=== PATIENT | female | born 1980 | race Caucasian/White ===

== ENCOUNTER → 2018-08-19 | Outpatient (CLI) | payer OTHER ==
[2018-08-21 14:08] LABS: HPV 16 Negative (Negative); HPV 18 Negative (Negative); HPV OTHER HR TYPES Negative (Negative)
== END ==
LOC: LAB 11:05 → LAB SHORT 11:05
PROVIDERS: Nurse Practitioner Obstetrics & Gynecology
DX: Z01.419 Encounter for gynecological examination (general) (routine) without abnormal findings (principal)
CPT/HCPCS: 87624; G0123

== ENCOUNTER → 2019-08-16 | Outpatient (CLI) | payer OTHER ==
[~2019-08-16] MED LIST: Lialda1.2 GM PO; MULTI VITAMIN1 EACH PO; Mesalamine4 GM/60 ML PR
[2019-08-16 14:30] LABS: Source, Urine Clean Catch
[2019-08-16 16:42] LABS: Red Blood Cells, Urine 0-2 /hpf (0-2); White Blood Cells, Urine 0-2 /hpf (0-5)
[2019-08-16 16:43] LABS: Bacteria Rare /hpf; Squamous Epithelial Cells Not Seen /hpf (Few)
[2019-08-19 02:10] LABS: CHLAMYDIA TRACHOMATIS, NAA Negative (Negative); NEISSERIA GONORRHOEAE, NAA Negative (Negative)
[2019-08-20 15:09] LABS: HPV 16 Negative (Negative); HPV 18 Negative (Negative)
== END ==
LOC: LAB SHORT 11:20 → LAB 11:20
PROVIDERS: Advanced Practice Midwife
DX: Z01.419 Encounter for gynecological examination (general) (routine) without abnormal findings (principal); Z11.3 Encounter for screening for infections with a predominantly sexual mode of transmission; R10.2 Pelvic and perineal pain; L98.9 Disorder of the skin and subcutaneous tissue, unspecified; R30.9 Painful micturition, unspecified
CPT/HCPCS: 81015; 87070; 87086; 87147; 87205; 87491; 87529; 87591; 87625; 88142

== ENCOUNTER → 2019-11-02 | Outpatient (CLI) | payer OTHER ==
[2019-11-02 16:48] LABS: Source Vaginal/Cervix
[2019-11-03 10:38] LABS: Candida species (DNA Probe) Negative (NEGATIVE); G. vaginalis (DNA Probe) Negative (NEGATIVE); T. vaginalis (DNA Probe) Negative (NEGATIVE)
== END | disposition home or self-care (01) ==
PROVIDERS: Advanced Practice Midwife
DX: N76.0 Acute vaginitis (principal)

== ENCOUNTER 2019-12-01 08:17 | Day surgery (SDC) | payer OTHER ==
[~2019-12-01] VITALS: Ht 162.6 cm; Wt 60.6 kg
--- NOTE | 2019-12-01 09:28 | NUR ---
12/01/19 0928 Muna Mota 1 IV MISS IHN RFA BY [facility] VALVE 1 GOOD IV IN RAC BY [facility] PT TOW
== END 2019-12-01 10:43 | disposition home or self-care (01) ==
LOC: ORSCSDS 08:17
PROVIDERS: Internal Medicine Gastroenterology
PROC: 0DBM8ZX Excision of Descending Colon, Via Natural or Artificial Opening Endoscopic, Diagnostic (ICD-10-PCS; principal; 2019-12-01 09:30)
PROC: 0DBN8ZX Excision of Sigmoid Colon, Via Natural or Artificial Opening Endoscopic, Diagnostic (ICD-10-PCS; principal; 2019-12-01 09:30)
PROC: 0DBK8ZX Excision of Ascending Colon, Via Natural or Artificial Opening Endoscopic, Diagnostic (ICD-10-PCS; principal; 2019-12-01 09:30)
PROC: 0DBL8ZX Excision of Transverse Colon, Via Natural or Artificial Opening Endoscopic, Diagnostic (ICD-10-PCS; principal; 2019-12-01 09:30)
PROC: 0DBP8ZX Excision of Rectum, Via Natural or Artificial Opening Endoscopic, Diagnostic (ICD-10-PCS; principal; 2019-12-01 09:30)
PROC: 0DBH8ZX Excision of Cecum, Via Natural or Artificial Opening Endoscopic, Diagnostic (ICD-10-PCS; principal; 2019-12-01 09:30)
DX: K51.90 Ulcerative colitis, unspecified, without complications (principal); Z79.899 Other long term (current) drug therapy
CPT/HCPCS: 88305; J2250; J2704; J7040; J7120

== ENCOUNTER → 2020-09-27 | Outpatient (CLI) | payer OTHER | LOC: LAB SHORT 14:46 | DX: D48.5 Neoplasm of uncertain behavior of skin (principal) | CPT/HCPCS: 88305 ==

== ENCOUNTER → 2021-07-23 | Outpatient (CLI) | payer OTHER | END | disposition home or self-care (01) | LOC: LAB SHORT 12:14 | DX: R23.4 Changes in skin texture (principal) | CPT/HCPCS: 88305; 88312 ==

== ENCOUNTER 2023-01-27 08:16 | Day surgery (SDC) | payer OTHER ==
[~2023-01-27] VITALS: Ht 162.6 cm; Wt 57.1 kg
[2023-01-27 09:49] VITALS: BP 98/73
== END 2023-01-27 09:52 | disposition home or self-care (01) ==
LOC: ORSCSDS 08:16
PROVIDERS: Internal Medicine Gastroenterology
PROC: 0DBG8ZX Excision of Left Large Intestine, Via Natural or Artificial Opening Endoscopic, Diagnostic (ICD-10-PCS; principal; 2023-01-27 09:30)
PROC: 0DBF8ZX Excision of Right Large Intestine, Via Natural or Artificial Opening Endoscopic, Diagnostic (ICD-10-PCS; principal; 2023-01-27 09:30)
PROC: 0DBP8ZX Excision of Rectum, Via Natural or Artificial Opening Endoscopic, Diagnostic (ICD-10-PCS; principal; 2023-01-27 09:30)
DX: K51.30 Ulcerative (chronic) rectosigmoiditis without complications (principal); K64.8 Other hemorrhoids; Z79.899 Other long term (current) drug therapy
CPT/HCPCS: 88305; J2704; J7120

== ENCOUNTER → 2023-04-07 | Outpatient (CLI) | payer OTHER ==
[2023-04-08 15:11] LABS: HPV 16 Negative (Negative); HPV 18 Negative (Negative); HPV OTHER HR TYPES Negative (Negative)
== END | disposition home or self-care (01) ==
LOC: LAB 10:42 → LAB SHORT 10:42
PROVIDERS: Obstetrics & Gynecology
DX: Z01.419 Encounter for gynecological examination (general) (routine) without abnormal findings (principal)
CPT/HCPCS: 87624; G0145

== ENCOUNTER → 2023-09-13 | Outpatient (CLI) | payer BC ==
[2023-09-13 14:11] LABS: BASOPHILS ABSOLUTE AUTO 0.05 K/mm3 (0.00-0.23); BASOPHILS PERCENT AUTO 0 % (0-2); EOSINOPHILS ABSOLUTE AUTO 0.82 K/mm3 (0.00-0.68); EOSINOPHILS PERCENT AUTO 7 % (0-6); Hematocrit 46.8 % (33.0-51.0); Hemoglobin 15.6 g/dL (11.5-16.0); IMMATURE GRAN ABSOLUTE AUTO 0.04 K/mm3 (0.00-0.10); IMMATURE GRAN PERCENT AUTO 0 % (0-1); LYMPHOCYTES ABSOLUTE AUTO 1.98 K/mm3 (0.84-5.20); LYMPHOCYTES PERCENT AUTO 17 % (21-46); MONOCYTES ABSOLUTE AUTO 0.77 K/mm3 (0.16-1.47); MONOCYTES PERCENT AUTO 7 % (4-13); Mean Corpuscular HGB 28.9 pg (26.0-34.0); Mean Corpuscular HGB Conc 33.3 g/dL (31.5-36.5); Mean Corpuscular Volume 87 fL (80-100); Mean Platelet Volume 8.6 fL (9.1-12.4); NEUTROPHILS ABSOLUTE AUTO 7.97 K/mm3 (1.96-9.15); NEUTROPHILS PERCENT AUTO 69 % (41-73); Platelet Count 397 K/mm3 (150-400); RDW Coefficient Variation 13.5 % (11.7-14.2); RDW Standard Deviation 42.4 fL (35.1-46.3); White Blood Cell Count 11.63 K/mm3 (4.00-11.30)
[2023-09-13 14:23] LABS: Albumin, Blood 3.6 g/dL (3.4-5.0); Albumin/Globulin Ratio 0.7 (0.8-1.8); Bilirubin, Total 0.4 mg/dL (0.1-1.0); Bun/Creatinine Ratio 15.2 (12.0-20.0); Calcium, Blood 8.9 mg/dL (8.5-10.1); Creatinine, Blood 0.79 mg/dL (0.40-1.00); Globulin, Blood 4.9 g/dL (2.2-4.0); Potassium, Blood 3.7 mmol/L (3.5-5.5); Total Protein, Blood 8.5 g/dL (6.4-8.2)
== END ==
LOC: LAB SHORT 14:07 → LAB 14:07
PROVIDERS: Emergency Medicine
DX: R10.9 Unspecified abdominal pain (principal)
CPT/HCPCS: 80053; 83690; 85025

== ENCOUNTER → 2024-05-25 | Outpatient (CLI) | payer BC ==
[~2024-05-25] MED LIST changes: +MESALAMINE PR
[2024-05-25 10:47] LABS: BASOPHILS ABSOLUTE AUTO 0.04 K/mm3 (0.00-0.23); BASOPHILS PERCENT AUTO 0 % (0-2); EOSINOPHILS ABSOLUTE AUTO 0.32 K/mm3 (0.00-0.68); EOSINOPHILS PERCENT AUTO 2 % (0-6); Hematocrit 39.5 % (33.0-51.0); Hemoglobin 12.8 g/dL (11.5-16.0); IMMATURE GRAN ABSOLUTE AUTO 0.06 K/mm3 (0.00-0.10); IMMATURE GRAN PERCENT AUTO 0 % (0-1); LYMPHOCYTES ABSOLUTE AUTO 1.04 K/mm3 (0.84-5.20); LYMPHOCYTES PERCENT AUTO 8 % (21-46); MONOCYTES ABSOLUTE AUTO 0.67 K/mm3 (0.16-1.47); MONOCYTES PERCENT AUTO 5 % (4-13); Mean Corpuscular HGB 27.7 pg (26.0-34.0); Mean Corpuscular HGB Conc 32.4 g/dL (31.5-36.5); Mean Corpuscular Volume 86 fL (80-100); NEUTROPHILS ABSOLUTE AUTO 11.38 K/mm3 (1.96-9.15); NEUTROPHILS PERCENT AUTO 84 % (41-73); RDW Standard Deviation 42.6 fL (35.1-46.3); Red Blood Cell Count 4.62 M/mm3 (3.80-5.20); White Blood Cell Count 13.51 K/mm3 (4.00-11.30)
[2024-05-25 11:01] LABS: Mean Platelet Volume 9.1 fL (9.1-12.4); Platelet Count 263 K/mm3 (150-400)
== END | disposition home or self-care (01) ==
LOC: LAB 10:42 → LAB SHORT 10:42
PROVIDERS: Physician Assistant
DX: M79.89 Other specified soft tissue disorders (principal)
CPT/HCPCS: 84550; 85025

== ENCOUNTER 2024-05-26 11:34 | Inpatient (IN) | payer BC ==
[~2024-05-26] VITALS: Ht 162.6 cm; Wt 68.5 kg
[~2024-05-26 11:34] MED LIST changes: -MESALAMINE PR
[2024-05-26 12:30] LABS: Hematocrit 37.9 % (33.0-51.0); Hemoglobin 12.6 g/dL (11.5-16.0); Mean Corpuscular HGB 28.1 pg (26.0-34.0); Mean Corpuscular HGB Conc 33.2 g/dL (31.5-36.5); Mean Corpuscular Volume 84 fL (80-100); Mean Platelet Volume 8.7 fL (9.1-12.4); Platelet Count 214 K/mm3 (150-400); RDW Coefficient Variation 14.1 % (11.7-14.2); RDW Standard Deviation 42.7 fL (35.1-46.3); Red Blood Cell Count 4.49 M/mm3 (3.80-5.20); White Blood Cell Count 31.16 K/mm3 (4.00-11.30)
[2024-05-26 12:53] LABS: Albumin, Blood 3.4 g/dL (3.4-5.0); Albumin/Globulin Ratio 0.7 (0.8-1.8); Bilirubin, Total 1.3 mg/dL (0.1-1.0); Bun/Creatinine Ratio 17.2 (12.0-20.0); Calcium, Blood 8.9 mg/dL (8.5-10.1); Creatinine, Blood 0.76 mg/dL (0.40-1.00); Globulin, Blood 4.8 g/dL (2.2-4.0); Total Protein, Blood 8.2 g/dL (6.4-8.2)
[2024-05-26] MEDS ORDERED: NS 1,000 ML IV SCH ×3 (13:05→20:10)
[2024-05-26] MEDS ORDERED: HYDROmorphone HCl/Pf 1MG SYR IV ONE ×2 (13:05→14:55)
[2024-05-26] MEDS ORDERED: Vancomycin HCL 2,000 MG in NS 520 ML IV ONE (13:10)
[2024-05-26 13:11] LABS: BAND PERCENT MAN 15 % (0-8); BASOPHILS PERCENT MAN 0 % (0-2); EOSINOPHILS PERCENT MAN 0 % (0-6); LYMPHOCYTES ABSOLUTE MAN 0.62 K/mm3 (0.84-5.20); LYMPHOCYTES PERCENT MAN 2 % (21-46); MONOCYTES ABSOLUTE MAN 0.31 K/mm3 (0.16-1.47); MONOCYTES PERCENT MAN 1 % (4-13); NEUTROPHILS ABSOLUTE MAN 30.22 K/mm3 (1.96-9.15); SEG NEUTROPHILS PERCENT MAN 82 % (41-73); TOTAL CELLS COUNTED 100
[2024-05-26] MEDS ORDERED: Magnesium Hydroxide Conc 10 ML UDC PO PRN (15:15)
[2024-05-26] MEDS ORDERED: FLU VACC TS2024-25(6MOS UP)/PF 45 MCG/0.5 ML SYRINGE IM SCH (15:15)
[2024-05-26] MEDS ORDERED: Ondansetron HCl 2 MG / ML 2ML Vial IV PRN (15:15)
[2024-05-26] MEDS ORDERED: HYDROcodone 10-APAP 325 TAB PO PRN (15:15)
[2024-05-26] MEDS ORDERED: Potassium Chloride 20 MEQ TabCR PO ONE (15:20)
[2024-05-26] MEDS ORDERED: HYDROmorphone HCl/Pf 1MG SYR IV PRN (15:40)
--- NOTE | 2024-05-26 18:25 | NUR ---
PATEINT A/O X 4 PATIENT WAS ADMITTED FROM ER FOR SEPSIS AND HER LEFT ARM IS SWOLLEN AND WARM TO TOUCH. PATEINT INDEPENDENT IN ROOM AND CALL FOR ASSISTANCE. PATEINT STATES PAIN A 6/10 AND DOES NOT WANT NORCO PATIENT REQUEST TYELONL AND DR GARDNER CONTACTED FOR TYELNOL PAIN MEDICATION PER REQUEST.
[2024-05-26] MEDS ORDERED: Acetaminophen 325 MG TABLET PO PRN ×2 (18:35→18:50)
[2024-05-26 19:24] VITALS: BP 105/70
[2024-05-26] MEDS ORDERED: Lactobacil 2-S.Thermo-Bifido 1 1 Cap PO SCH (21:00)
[2024-05-26] MEDS ORDERED: Famotidine 20 MG Tab PO SCH (21:00)
[2024-05-26] MEDS ORDERED: Vancomycin HCL 750 MG in NS 250 ML IV SCH (22:00)
[2024-05-27 02:23] VITALS: BP 98/68
[2024-05-27] MEDS ORDERED: NS 500 ML IV ONE (03:50)
[2024-05-27] MEDS ORDERED: Acetaminophen 325 MG TABLET PO ONE (03:50)
--- NOTE | 2024-05-27 05:27 | NUR ---
SHIFT SUMMARY PT A&Ox4 AND PLEASANT. MEDICATED FOR PAIN IN LEFT ARM PER EMAR. LEFT ARM ELEVATED ON PILLOWS T/O NIGHT AND ICE APPLIED FOR 20 MIN AT START OF SHIFT. LEFT ARM REMAINS SWOLLEN, WARM, AND TIGHT. PT HAD TEMP OF 101.4, TYLENOL GIVEN BUT TEMP STILL INCREASED TO 102.2. ICE APPLIED TO BILATERAL AXILLARY, EXTRA BLANKETS REMOVED AND DR NOTIFIED. ORDERS GIVEN FOR 500ML BOLUS AND ONE TIME DOSE OF TYLENOL. PT'S TEMP CAME DOWN TO 99.1. NS INFUSING @ 150ml/hr. PT ON TELE AND HAS BEEN SINUS TACHY FROM 109-118. CONTINUING IV ABX PER ORDER. LACTIC ACID IMPROVED TO 1.4. BED IN LOWEST POSITION AND CALL LIGHT IN REACH.
[2024-05-27 05:38] LABS: Hematocrit 29.4 % (33.0-51.0); Hemoglobin 9.5 g/dL (11.5-16.0); Mean Corpuscular HGB Conc 32.3 g/dL (31.5-36.5); Mean Corpuscular Volume 87 fL (80-100); Mean Platelet Volume 9.9 fL (9.1-12.4); Platelet Count 164 K/mm3 (150-400); RDW Coefficient Variation 14.5 % (11.7-14.2); Red Blood Cell Count 3.39 M/mm3 (3.80-5.20); White Blood Cell Count 27.23 K/mm3 (4.00-11.30)
[2024-05-27 06:07] LABS: Bun/Creatinine Ratio 17.4 (12.0-20.0); Calcium, Blood 7.4 mg/dL (8.5-10.1); Creatinine, Blood 0.75 mg/dL (0.40-1.00); Potassium, Blood 3.2 mmol/L (3.5-5.5)
[2024-05-27 06:25] LABS: BAND PERCENT MAN 17 % (0-8); BASOPHILS PERCENT MAN 0 % (0-2); EOSINOPHILS PERCENT MAN 0 % (0-6); LYMPHOCYTES ABSOLUTE MAN 0.54 K/mm3 (0.84-5.20); LYMPHOCYTES PERCENT MAN 2 % (21-46); MONOCYTES ABSOLUTE MAN 0.54 K/mm3 (0.16-1.47); MONOCYTES PERCENT MAN 2 % (4-13); NEUTROPHILS ABSOLUTE MAN 26.14 K/mm3 (1.96-9.15); SEG NEUTROPHILS PERCENT MAN 79 % (41-73); TOTAL CELLS COUNTED 100
[2024-05-27 07:29] VITALS: BP 83/58
--- NOTE | 2024-05-27 07:39 | NUR ---
CONTACTED DR GARDNER REGARDING BP 83/54 AND INCREASED NOTED SWELLING ON LEFT ARM. AREA MARKED WITH MARKER. DR. GARDNER TO SEE PATIENT AT BEDSIDE.
[2024-05-27] MEDS ORDERED: NS 500 ML IV SCH ×2 (07:50→17:10)
[2024-05-27] MEDS ORDERED: Cefepime HCl 2,000 MG in NS 100 ML IV SCH (08:00)
[2024-05-27] MEDS ORDERED: Enoxaparin 40 MG/0.4 ML SYR SC SCH (09:00)
[2024-05-27] MEDS ORDERED: Potassium Chloride 20 MEQ TabCR PO ONE (10:35)
[2024-05-27] MEDS ORDERED: Clindamycin 900mg in D5W 50ML 50 ML IV SCH (13:19)
[2024-05-27 13:29] VITALS: BP 118/76
--- NOTE | 2024-05-27 13:41 | NUR ---
CONTACTED DR GARDNER REGARDING PATIENT INCREASING PAIN IN LEFT ARM WHICH PAITENT STATES FEELS LIKE IT IS GOING TO "EXPLODE". PATIENT ARM ALSO NOTED TO HAVE INCREASED SWELLING ABOVE THIS MORNING ERNESTINA, SWELLING NOW LOCATED ON LEFT TRICEPT AREA. PATIENT STATED SHE FELT DIZZY STANDING UP TODAY AND STATES SHE WILL CALL FOR HELP NEXT TIME. PATIENT RATING PAIN 7/10 GIVEN IV PAIN MEDICATION. LACTIC ACID ORDRED BY PROVIDER AND NEW ANTIBIOTIC PLACED. PT HAS NOTED ABOVE 150'S. DR GARDNER AWARE OF INCREASED HEARTRATE. BP NOTED 118/76 TEMP 98.9 RESP 16.
[2024-05-27 13:57] LABS: Vancomycin, Trough 11.2 ug/mL (5.0-10.0)
[2024-05-27] MEDS ORDERED: MESALAMINE 1.2 GM PO SCH (14:00)
[2024-05-27] MEDS ORDERED: Vancomycin HCL 1,000 MG in NS 250 ML IV SCH (14:15)
[2024-05-27 16:12] VITALS: BP 98/72
--- NOTE | 2024-05-27 17:33 | NUR ---
PATIENT A/O X 4. PATIENT HAS BEEN INDEPENDENT IN THE ROOM HOWEVER WILL CALL FOR ASSITANCE. PATIENT HAS NEW ATB ON BOARD DUE TO INCREASE SWELLING OF LEFT ARM. PATIENT HAS REQUIRED PAIN MEDICATION EVERY TWO HOURS DUE TO PAIN. PATIENT HAS IV IN RIGHT HAD WITH 22G CATH. PATIENT ADVISED TO CALL FOR ANY ASSISTANCE.
--- NOTE | 2024-05-27 17:56 | NUR ---
POWERGLIDE PLACED IN LISA 20G. PATIENT TOLERATED PROCEDURE WELL. PLACEMENT DONE BY CHADWICK MALCOLM
[2024-05-27 20:27] VITALS: BP 94/65
[2024-05-27] MEDS ORDERED: NS 1,000 ML IV SCH (20:40)
[2024-05-28 02:27] VITALS: BP 91/61
--- NOTE | 2024-05-28 04:51 | NUR ---
SHIFT SUMMARY PT A&Ox4 AND PLEASANT. PT MEDICATED FOR LEFT ARM PAIN THAT WAS ABOUT A 7/10 T/O NIGHT. LEFT ARM REMAINS SWOLLEN, TENDER AND WARM. PALPABLE LEFT RADIAL PULSE AND PT DENIES NUMBNESS OR TINGLING SENSATION. L ARM ELEVATED T/O NIGHT. PT'S BP REMAINS SOFT BUT CONTINUING NS INFUSION @ 150ml/hr. IV ABX AMINISTERED PER EMAR. PT REMAINS AFEBRILE. HR TACHY FROM 109-120 PER SENIOR SUPPORT ANALYST. SBA ASSIST AT NIGHT D/T SOFT BP AND HX OF FAINTING AT HOME. BED IN LOWEST POSITION AND CALL LIGHT IN REACH.
[2024-05-28 05:54] LABS: Hematocrit 25.9 % (33.0-51.0); Hemoglobin 8.5 g/dL (11.5-16.0); Mean Corpuscular HGB 28.1 pg (26.0-34.0); Mean Corpuscular HGB Conc 32.8 g/dL (31.5-36.5); Mean Corpuscular Volume 86 fL (80-100); Platelet Count 154 K/mm3 (150-400); RDW Coefficient Variation 14.6 % (11.7-14.2); RDW Standard Deviation 45.5 fL (35.1-46.3); Red Blood Cell Count 3.03 M/mm3 (3.80-5.20); White Blood Cell Count 23.15 K/mm3 (4.00-11.30)
[2024-05-28 06:15] LABS: Calcium, Blood 6.8 mg/dL (8.5-10.1); Creatinine, Blood 0.58 mg/dL (0.40-1.00); Potassium, Blood 3.1 mmol/L (3.5-5.5)
[2024-05-28 07:34] VITALS: BP 110/68
[2024-05-28] MEDS ORDERED: HYDROmorphone HCl 2 MG Tab PO PRN (11:10)
[2024-05-28 14:26] LABS: Vancomycin, Trough 13.1 ug/mL (5.0-10.0)
[2024-05-28 15:13] VITALS: BP 132/85
[2024-05-28] MEDS ORDERED: MESALAMINE PR (15:47)
--- NOTE | 2024-05-28 16:03 | NUR ---
DR. HOYT ROUNDED ON PT. HE ADVISED ELEVATING ARM ON PILLOWS, AND ALTERNATING HOT/COOL TREATMENT. WARM K-PAD APPLIED TO ARM AND PLACED AT BEDSIDE. PT CAN TOLERATE ELEVATING ARM ON TWO PILLOWS. RN WILL RELAY TO NOC NURSE.
[2024-05-28] MEDS ORDERED: Potassium Chloride 20 MEQ TabCR PO ONE (17:00)
--- NOTE | 2024-05-28 18:42 | NUR ---
PAULETTE IS HERE FOR LEFT ARM CELLULITIS. ROOM AIR. DR. HOYT CONSULTED, ADVISED TO ELEVATE AND ALTERNATE COLD/WARM THERAPY. HE PLANS TO RE-ASSESS TOMORROW. PT IS ON TELEMETRY, TACHY IN THE 120'S - 140'S WITH MOVEMENT TO THE BATHROOM. OTHER VITAL SIGNS STABLE. PRN'S GIVEN FOR PAIN CONTROL - DILAUDID PO AND TYLENOL PO. ULTRASOUND PERFORMED, NO ABSCESS NOTED. PT HAS LITTLE APPETITE, PICKS AT FOOD. PLAN IS TO CONTINUE IV ANTIBIOTICS AND LABS.
[2024-05-28 19:25] VITALS: BP 113/72
[2024-05-28] MEDS ORDERED: Lactated Ringer's 1,000 ML IV SCH (20:20)
[2024-05-28 22:43] VITALS: BP 103/70
[2024-05-29 02:35] VITALS: BP 112/71
--- NOTE | 2024-05-29 02:48 | NUR ---
NOTE AT 1930 PHOTO MASK CLEANER REPORTED PT SPO2 WAS 88%-90% WHILE TAKING VITALS. PUT PT ON 1 L O2. BP WAS 113/72. HR TACHY 130 BPM ON AMBULATION CALLED JAYY TO NOTIFY. JAYY PUT ORDERS IN FOR OXYGEN AND LR @75ML/HR.
[2024-05-29 06:19] LABS: BASOPHILS ABSOLUTE AUTO 0.06 K/mm3 (0.00-0.23); BASOPHILS PERCENT AUTO 0 % (0-2); Hematocrit 26.5 % (33.0-51.0); Hemoglobin 9.1 g/dL (11.5-16.0); LYMPHOCYTES ABSOLUTE AUTO 1.14 K/mm3 (0.84-5.20); LYMPHOCYTES PERCENT AUTO 6 % (21-46); MONOCYTES ABSOLUTE AUTO 0.96 K/mm3 (0.16-1.47); MONOCYTES PERCENT AUTO 5 % (4-13); Mean Corpuscular HGB 28.3 pg (26.0-34.0); Mean Corpuscular HGB Conc 34.3 g/dL (31.5-36.5); Mean Corpuscular Volume 83 fL (80-100); Mean Platelet Volume 9.6 fL (9.1-12.4); Platelet Count 184 K/mm3 (150-400); RDW Coefficient Variation 14.7 % (11.7-14.2); RDW Standard Deviation 44.2 fL (35.1-46.3); Red Blood Cell Count 3.21 M/mm3 (3.80-5.20); White Blood Cell Count 20.33 K/mm3 (4.00-11.30)
[2024-05-29 06:26] LABS: EOSINOPHILS ABSOLUTE AUTO 0.57 K/mm3 (0.00-0.68); EOSINOPHILS PERCENT AUTO 3 % (0-6); IMMATURE GRAN ABSOLUTE AUTO 0.15 K/mm3 (0.00-0.10); IMMATURE GRAN PERCENT AUTO 1 % (0-1); NEUTROPHILS ABSOLUTE AUTO 17.45 K/mm3 (1.96-9.15); NEUTROPHILS PERCENT AUTO 86 % (41-73)
--- NOTE | 2024-05-29 06:35 | NUR ---
SUPERVISOR PAYROLL SUMMARY PT IS A/OX4. ABLE TO MAKE NEEDS KNOWN. PLEASANT AND COOPERATIVE. AT BEGINNING OF SHIFT, VITALS TAKEN AND PT SATURATIONS 88%; PT INSTRUCTED TO TAKE DEEP BREATHS--ONLY RAISING TO 90%. PT IS ON ORAL DILAUDIS. PLACED PT ON 1LPM OXYGEN. PT HEART RATE SINUS TACH IN 120'S GOING UP TO 140'S WITH ACTIVITY. BLOOD PRESSURE TRENDING DOWN. CALL TO HOSPITALIST. NEW ORDER FOR LR 75MLS HOUR AND OXYGEN. PT REPORTS PAIN OF 7-9/10; PT REPORTS WORSENING PAIN TRAVELING UP THE UNDERSIDE OF THE ARM TO THE ARM PIT WITH INCREASED SWELLING, TENDERNESS, WARMTH, AND FIRMNESS IN THE TISSUE. INSTRUCTED PT AND ASSISTED TO KEEP ARM ELEVATED ABOVE THE HEART T/O THE SHIFT. ALTERNATED COLD AND HEAT T/O THE SHIFT PT TOLERATED. CALL LIGHT ACCESSIBLE AND PT CALLING APPROPRIATELY. PAIN NOT WELL CONTROLLED AND PT STATING THE ORAL DILAUDID DOES NOT LAST LONG. REGULAR INTERVAL ROUNDING COMPLETE.
[2024-05-29 06:44] LABS: Albumin, Blood 1.7 g/dL (3.4-5.0); Albumin/Globulin Ratio 0.4 (0.8-1.8); Bilirubin, Total 0.8 mg/dL (0.1-1.0); Bun/Creatinine Ratio 16.5 (12.0-20.0); Calcium, Blood 7.8 mg/dL (8.5-10.1); Creatinine, Blood 0.55 mg/dL (0.40-1.00); Globulin, Blood 3.9 g/dL (2.2-4.0); Total Protein, Blood 5.6 g/dL (6.4-8.2)
[2024-05-29 07:28] VITALS: BP 94/55
[2024-05-29] MEDS ORDERED: Potassium Chloride 20 MEQ TabCR PO ONE (09:00)
[2024-05-29] MEDS ORDERED: Protein Supplement 30 ML UD PO SCH (09:00)
[2024-05-29] MEDS ORDERED: Ketorolac Tromethamine 15mg Vial IV PRN (12:00)
[2024-05-29] MEDS ORDERED: Albumin (Human) 25gm/100ml 100 ML IV SCH (16:00)
[2024-05-29] MEDS ORDERED: Furosemide 10 MG / ML 2ML Vial IV SCH (16:00)
[2024-05-29 16:12] VITALS: BP 105/70
[2024-05-29 19:30] VITALS: BP 132/80
[2024-05-29] MEDS ORDERED: Metoprolol Tartrate 25 MG Tab PO SCH (21:00)
[2024-05-30] VITALS (20 sets, daily range): BP systolic 113–1285; BP diastolic 55–93
[2024-05-30] MEDS ORDERED: HYDROmorphone HCl 2 MG Tab PO ONE (04:05)
[2024-05-30 04:58] LABS: BASOPHILS ABSOLUTE AUTO 0.04 K/mm3 (0.00-0.23); BASOPHILS PERCENT AUTO 0 % (0-2); EOSINOPHILS ABSOLUTE AUTO 0.44 K/mm3 (0.00-0.68); EOSINOPHILS PERCENT AUTO 3 % (0-6); Hematocrit 25.7 % (33.0-51.0); Hemoglobin 8.7 g/dL (11.5-16.0); IMMATURE GRAN ABSOLUTE AUTO 0.12 K/mm3 (0.00-0.10); IMMATURE GRAN PERCENT AUTO 1 % (0-1); LYMPHOCYTES PERCENT AUTO 6 % (21-46); MONOCYTES ABSOLUTE AUTO 0.76 K/mm3 (0.16-1.47); MONOCYTES PERCENT AUTO 5 % (4-13); Mean Corpuscular HGB Conc 33.9 g/dL (31.5-36.5); Mean Corpuscular Volume 83 fL (80-100); Mean Platelet Volume 9.8 fL (9.1-12.4); NEUTROPHILS ABSOLUTE AUTO 12.21 K/mm3 (1.96-9.15); NEUTROPHILS PERCENT AUTO 85 % (41-73); Platelet Count 202 K/mm3 (150-400); RDW Coefficient Variation 14.9 % (11.7-14.2); RDW Standard Deviation 44.8 fL (35.1-46.3); Red Blood Cell Count 3.11 M/mm3 (3.80-5.20); White Blood Cell Count 14.37 K/mm3 (4.00-11.30)
[2024-05-30 05:28] LABS: Bun/Creatinine Ratio 21.1 (12.0-20.0); Creatinine, Blood 0.57 mg/dL (0.40-1.00); Potassium, Blood 2.8 mmol/L (3.5-5.5)
--- NOTE | 2024-05-30 05:39 | NUR ---
PHYSICIAN CONTACT PT CALLED RN TO ROOM. C/O COUGHING, SOME SOB, AND CHEST PAIN. OBTAINED VITALS--STABLE. CALL TO STONE DRILLER--PT SINUS TACH. OBTAINED EKG; SINUS TACH, NO CHANGE. PT HAS BEEN SINUS TACH FOR MULTPLE DAYS. PT HAS INCENTIV SPIROMETER AT [facility]. REENFORCED EDUCATION ON IMPORTANCE OF DEEP BREATHING AND COUGHING TO PREVENT SECONDARY PNA. PT IS SLIGHTLY CLAMMY AND ALSO C/O UNCONTROLLED/INCREASED PAIN TO LEFT ARM; 9/10 PAIN. NOTED NO CHAGE TO SWELLING BUT FINGERTIPS WERE WHITE AND COLD. RADIAL PULSE PALPABLE. PT DENIES NUMBNESS. CALL TO HAND BUNCH MAKER/DR COREY TO REPORT CHANGE IN CONDITION. DR CAME TO BEDSIDE TO ASSESS. AT THAT TIME COLOR TO FINGERS ARE STARTING TO IMPROVE. TO NOTIFY SURGEON IN A FEW HOURS OF CHANGE. INSTRUCTED TO CALL BACK IF SYMPTOMS WORSEN OR LOSS OF FEELING.
[2024-05-30] MEDS ORDERED: Potassium Chl 20MEQ/Water100ML 100 ML IV SCH (06:00)
--- NOTE | 2024-05-30 06:01 | NUR ---
POTASSIUM LEVEL OF 2.8 THIS MORNING. CALL TO HOSPITALIST. NEW ORDER FOR IV POTASSIUM AND MAGNESIUM LAB DRAW.
--- NOTE | 2024-05-30 06:05 | NUR ---
SPINNING BATH PATROLLER SUMMARY SEE NURSE NOTES THIS SHIFT. PT A/OX4. ABLE TO MAKE NEEDS KNOWN. CALL LIGHT ACCESSIBLE. PT ANXIOUS ABOUT HER CONDITION AND FEELING SHE IS NOT IMPROVING. PT C/O OF 5-9/10 PAIN IN LEFT ARM. PT IS REQUIRING PAIN MEDICATION AROUND TO CLOCK TO MANAGE PAIN; MEDS PER MAR. PT HAS BEEN NPO SINCE MIDNIGHT FOR POSSIBLE SURGICAL INTERVENTION TODAY. LEFT ARM REMAINS SWOLLEN WITH NO IMPROVEMENT. SWELLING UP HER ARM, EXTENDING INTO THE ARM PIT. TRACE SWELLING NOTED TO HER BACK, HIPS, AND LEGS. PT MAINTIANING OXYGEN SATURATIONS HOWEVER C/O OF INCREASED NEED TO COUGH AND CHEST DISCOMFORT (SEE NOTE RE EKG). PT HAS BEEN SINUS TACH--NO CHANGE ON TELE OR EKG. INSTRUCTED PT ON USE OF IS AND NEED FOR DEEP BREATH/COUGH TO MITIGATE RISK OF PNA. CONTINUING TO ELEVATE LEFT ARM. ALTERNATING COOL/HEAT PT TOLERATES. CALL LIGHT ACCESSIBLE AND FREQUENT ROUNDING TO ASSESS NEEDS COMPLETE AT LEAST Q2 HOURS OR NEEDED. WCTM PT UNTIL REPORT GIVEN TO ONCOMING NURSE.
[2024-05-30 06:21] LABS: Magnesium, Blood 1.8 mg/dL (1.6-2.4)
[2024-05-30] MEDS ORDERED: HYDROmorphone HCl/Pf 1MG SYR IV PRN ×2 (09:45→15:45)
[2024-05-30] MEDS ORDERED: Clindamycin 900mg in D5W 50ML 50 ML IV SCH (10:30)
--- NOTE | 2024-05-30 13:17 | NUR ---
PATIENT OFF FLOOR WITH OR STAFF.
[2024-05-30 13:20] LABS: Vancomycin, Trough 19.5 ug/mL (5.0-10.0)
--- NOTE | 2024-05-30 13:23 | NUR ---
CONTACTED PHARMACY REGARDING VANCO DOSE DUE AT 1400 PT WILL BE IN SURGERY AT THIS TIME, STATED THEY WILL CALL OR AND PROCEED FROM THERE. ALBUMIN DOSE MISSED THIS AM DUE TO LACK OF ADDITIONAL IV ACCESS, WAS ATTEMPTED 5 TIMES UNSUCCESSFULLY. PHARMACY ADVISED TO MISS THE DOSE AND CONTINUE WITH 1800 DOSE. DOC MADE AWARE AND OKAY WITH MISSED DOSE.
[2024-05-30] MEDS ORDERED: Lactated Ringer's 1,000 ML IV ONE (13:30)
[2024-05-30] MEDS ORDERED: Bupivacaine 0.5% HCl 5 MG/ML 30MLVIAL ONE (13:32)
--- NOTE | 2024-05-30 13:42 | NUR ---
PT ARRIVES TO PACU VIA GURNEY FROM RM 304 AT 1320 FOR PREOP CARE. PLEASANT & COOPERATIVE. FEBRILE 101.3/SINUS TACH 122 PER ELECTRONICS PRODUCTION SUPERVISOR. LR AT TKO INFUSING. SURGICAL HAT/PAS SLEEVE TO RLE/BP CUFF TO LLE PLACED. SURGICAL PACK COMPLETE. MOUTH & LIP CARE GIVEN. RESTING QUIETLY. NO COMPLAINTS AT THIS TIME.
[2024-05-30] MEDS ORDERED: Dose Adjust by Pharmacy XX STA (13:45)
[2024-05-30] MEDS ORDERED: propofoL 20 ML IV ONE (13:49)
[2024-05-30] MEDS ORDERED: HYDROmorphone HCl/Pf 1MG SYR ONE ×3 (13:49→15:47)
--- NOTE | 2024-05-30 13:50 | NUR ---
PT TO OR 4 VIA SUSANNE AT 1348 IN STABLE CONDITION.
[2024-05-30] MEDS ORDERED: Phenylephrine HCl 10mg/ml 1 ml Vial ONE (13:55)
[2024-05-30] MEDS ORDERED: Ketorolac Tromethamine 30mg Vial ONE (14:20)
[2024-05-30] MEDS ORDERED: Sodium Hypochlorite 480 ML BTL (0.25%) TOP ONE (14:20)
--- NOTE | 2024-05-30 15:36 | NUR ---
REPORT CALLED TO PCU STAFF
[2024-05-30] MEDS ORDERED: Bisacodyl 10 MG Supp PR PRN (15:40)
[2024-05-30] MEDS ORDERED: Magnesium Hydroxide Conc 10 ML UDC PO PRN (15:45)
[2024-05-30] MEDS ORDERED: HYDROmorphone HCl 2 MG Tab PO PRN (15:45)
[2024-05-30] MEDS ORDERED: FLU VACC TS2024-25(6MOS UP)/PF 45 MCG/0.5 ML SYRINGE IM ONE (15:45)
[2024-05-30] MEDS ORDERED: Acetaminophen 325 MG TABLET PO PRN (15:45)
[2024-05-30] MEDS ORDERED: Ketorolac Tromethamine 30mg Vial IV PRN (15:55)
[2024-05-30] MEDS ORDERED: NS KCl 20mEq 1,000 ML IV SCH (16:00)
--- NOTE | 2024-05-30 17:32 | NUR ---
SHIFT SUMMARY PT A&OX4 AND ANSWERS QUESTIONS APPROPRIATELY. PT ARRIVED ON UNIT FROM POST OP AROUND 1550 AND WAS TRANSFERRED VIA SLIDESHEET INTO BED. MEDICATED PER EMAR FOR PAIN. SCHEDULED MEDICATIONS ADMINISTERED. VSS, NO COMPLAINTS OF CP/PRESSURE OR SOB. PT TOLERATING PO INTAKE. NO ACUTE EVENTS AT THIS TIME. PT LEFT IN A POSITION OF SAFETY W/ FALL PRECAUTIONS IN PLACE, CALL LIGHT IN REACH, INDEPENDENTLY REPOSITIONS
[2024-05-30] MEDS ORDERED: Docusate Sodium 100 MG Cap PO SCH (21:00)
[2024-05-31] VITALS (20 sets, daily range): BP systolic 93–133; BP diastolic 59–81
[2024-05-31 04:48] LABS: Hematocrit 30.9 % (33.0-51.0); Mean Corpuscular HGB 27.9 pg (26.0-34.0); Mean Corpuscular HGB Conc 32.4 g/dL (31.5-36.5); Mean Corpuscular Volume 86 fL (80-100); Mean Platelet Volume 9.7 fL (9.1-12.4); Platelet Count 249 K/mm3 (150-400); RDW Coefficient Variation 15.4 % (11.7-14.2); RDW Standard Deviation 48.4 fL (35.1-46.3); Red Blood Cell Count 3.59 M/mm3 (3.80-5.20); White Blood Cell Count 22.79 K/mm3 (4.00-11.30)
[2024-05-31 05:08] LABS: Magnesium, Blood 2.1 mg/dL (1.6-2.4)
[2024-05-31 05:37] LABS: Bun/Creatinine Ratio 39.1 (12.0-20.0); Calcium, Blood 7.6 mg/dL (8.5-10.1); Creatinine, Blood 0.51 mg/dL (0.40-1.00); Potassium, Blood 4.4 mmol/L (3.5-5.5)
[2024-05-31 05:39] LABS: C-REACTIVE PROTEIN, EXT RANGE 24.8 mg/dL (0.000-0.300)
[2024-05-31 05:58] LABS: BAND PERCENT MAN 10 % (0-8); BASOPHILS PERCENT MAN 0 % (0-2); EOSINOPHILS PERCENT MAN 0 % (0-6); LYMPHOCYTES ABSOLUTE MAN 2.05 K/mm3 (0.84-5.20); LYMPHOCYTES PERCENT MAN 9 % (21-46); MONOCYTES ABSOLUTE MAN 1.13 K/mm3 (0.16-1.47); MONOCYTES PERCENT MAN 5 % (4-13); NEUTROPHILS ABSOLUTE MAN 19.59 K/mm3 (1.96-9.15); SEG NEUTROPHILS PERCENT MAN 76 % (41-73); TOTAL CELLS COUNTED 100
--- NOTE | 2024-05-31 06:17 | NUR ---
SHIFT SUMMARY ASSUMED CARE OF PT AT 1900. PT A&O4, COOPERATIVE IN CARE AND ABLE TO EXPRESS NEEDS. FAMILY WITH PT AT BEDSIDE. PT CURRENTLY RUNNING NS W 20mEq KCl AT 75ML/HR ALONG W IV ABX. PT PRESENTED W DRESSING WRAPPED TO LUE W MODERATE DRAINAGE ON GUY WRAP. MD TO MAINTAIN DRESSING CHANGES. PT C/O PAIN, PRN ANALGESICS GIVEN, PT TOLERATED TORADOL AND DID NOT LIKE THE WAY DILAUDID 1MG MAKE HER FEEL, WILL ATTEMPT LOWER DOSE AT NEXT REQUEST. PT TOLERATED ASSISTANCE TO BSC. VSS WHILE PT REMAINED ON 2LNC. BED IN LOWEST POSITION AND CALL LIGHT WITHIN REACH.
[2024-05-31 06:43] LABS: Bun/Creatinine Ratio 38.9 (12.0-20.0); Calcium, Blood 7.8 mg/dL (8.5-10.1); Creatinine, Blood 0.54 mg/dL (0.40-1.00); Potassium, Blood 3.4 mmol/L (3.5-5.5)
[2024-05-31] MEDS ORDERED: Enoxaparin 40 MG/0.4 ML SYR SC SCH (09:00)
--- NOTE | 2024-05-31 13:15 | NUR ---
DR. CARLTON ROUNDED ON PT THIS AM, PLAN OF CARE TO GO TO OR THIS 05/31
[2024-05-31] MEDS ORDERED: propofoL 50 ML IV ONE (15:37)
[2024-05-31] MEDS ORDERED: Dexamethasone Sod Phos 10 MG/ML 1ML VIAL ONE (15:40)
[2024-05-31] MEDS ORDERED: HYDROmorphone HCl/Pf 1MG SYR ONE ×3 (15:40→17:00)
[2024-05-31] MEDS ORDERED: Ondansetron HCl 2 MG / ML 2ML Vial ONE ×2 (15:40→16:27)
[2024-05-31] MEDS ORDERED: propofoL 20 ML IV ONE (15:41)
[2024-05-31] MEDS ORDERED: Lactated Ringer's 1,000 ML IV SCH (15:45)
[2024-05-31] MEDS ORDERED: Ketorolac Tromethamine 30mg Vial ONE (16:09)
--- NOTE | 2024-05-31 16:14 | NUR ---
History, Chart, Medications and Allergies reviewed before start of procedure. Pre-Op teaching done. Pt verbalizes understanding. Patient confirms NPO status and agrees with scheduled surgery. PT BELONGINGS LEFT IN PCU ROOM. PT GLASSES PLACED IN PACU. PT UNABLE TO REMOVE EARRINGS. AYAH PAPERWORK SIGNED.
[2024-05-31] MEDS ORDERED: Acetaminophen 500 MG Tab PO SCH (16:20)
[2024-05-31] MEDS ORDERED: Lidocaine HCl 2% 20 ML MDV ONE (16:27)
[2024-05-31] MEDS ORDERED: Metoclopramide HCl 5MG / ML 2ML Vial ONE (16:27)
--- NOTE | 2024-05-31 17:01 | NUR ---
SHIFT SUMMARY A&OX4, OBEYS COMMANDS, ABLE TO MAKE NEEDS KNOWN, CALLS APPROPATELY. I PERSON SBA TO BSC TO HELP WITH CORD MANAGEMENT, PT HAS LIMITED MOBILITY TO LEFT ARM, DUE TO WOUND DRESSING. CONTINUOUS SPO2 MONITORING, SPO2 GREATER THAN 90% ON RA/TITRATED DOWN FROM 1L 02 VIA NC, NO SIGN OF RESPIRATORY DISTRESS NOTED, LUNGS SOUND CLEAR T/O WITH DIMINISHED BASES. CONTINUOUS TELE MONITORING, SNR 80 S, DENIES CHEST P/P, BP STABLE WITH MAP GREATER THAN 65, CAP REFILL WNL, STRONG PULSES T/O / CHECO LEFT RADIAL PULSE DUE TO WOUND DRESSING/ LEFT FINGERS WARM WITH CAP REFILL WNL. INCISIONS UNDER WOUND DRESSING THAT WAS PLACED ON OR, SMALL SCAB TO LEFT EYEBROW WITHOUT SIGNS OF INFECTION, LEFT INDEX FINGER HAS SMALL SCAB AREA SLIGHTLY RED BUT NOT OTHER SIGNS OF INFECTION, NO INCREASED RENDESS BELOW OR ABOVE THE DRESSING SITES. PT STATES PAIN IS MUCH BETTER THAN YESTERDAY 05/30, ITS MANAGEABLE WITH CURRENT ORDERS FOR PAIN MANAGEMENT. HELD AM ALBER FOR PROCEDURE THIS AFTERNOON, AWARE. DR. OVIEDO ROUNDED THIS AM, PLAN OF CARE ONGOING. PT TAKEN BACK TO PROCEDURE AROUND 1529, BY WHEEL CHAIR.
--- NOTE | 2024-05-31 18:54 | NUR ---
PT RETURNED TO ROOM FROM PACU, PT REPORTING INCREASED PAIN, MEDICATED PER ORDERS, PT NOW RESTNG COMFORTABLE IN BED, BREATHING UNLABORED.
[2024-06-01] VITALS (7 sets, daily range): BP systolic 118–136; BP diastolic 70–79
[2024-06-01 05:04] LABS: BASOPHILS ABSOLUTE AUTO 0.04 K/mm3 (0.00-0.23); BASOPHILS PERCENT AUTO 0 % (0-2); EOSINOPHILS ABSOLUTE AUTO 0.03 K/mm3 (0.00-0.68); EOSINOPHILS PERCENT AUTO 0 % (0-6); Hemoglobin 8.4 g/dL (11.5-16.0); IMMATURE GRAN ABSOLUTE AUTO 0.16 K/mm3 (0.00-0.10); IMMATURE GRAN PERCENT AUTO 1 % (0-1); LYMPHOCYTES ABSOLUTE AUTO 1.48 K/mm3 (0.84-5.20); LYMPHOCYTES PERCENT AUTO 8 % (21-46); MONOCYTES ABSOLUTE AUTO 0.36 K/mm3 (0.16-1.47); MONOCYTES PERCENT AUTO 2 % (4-13); Mean Corpuscular HGB 28.2 pg (26.0-34.0); Mean Corpuscular HGB Conc 33.6 g/dL (31.5-36.5); Mean Corpuscular Volume 84 fL (80-100); Mean Platelet Volume 9.1 fL (9.1-12.4); NEUTROPHILS ABSOLUTE AUTO 15.72 K/mm3 (1.96-9.15); NEUTROPHILS PERCENT AUTO 88 % (41-73); Platelet Count 393 K/mm3 (150-400); RDW Coefficient Variation 15.7 % (11.7-14.2); RDW Standard Deviation 47.3 fL (35.1-46.3); Red Blood Cell Count 2.98 M/mm3 (3.80-5.20); White Blood Cell Count 17.79 K/mm3 (4.00-11.30)
--- NOTE | 2024-06-01 05:11 | NUR ---
SHIFT SUMMARY ASSUMED CARE OF PT AT 1900. PT A&O4, VERY LETHARGIC AT START OF SHIFT D/T PRN ANALGESICS RECENTLY GIVEN. PT WIDE AWAKE BY MED PASS, COOPERATIVE IN CARE AND ABLE TO EXPRESS OWN NEEDS. GUY BANDAGE TO THE LUE WITH SCANT DRAINAGE PRESENT WITH FINGERS EXPOSED; PINK WITH SENSATION PRESENT. PT REQUESTED BREAK FROM SCDs THIS AM AFTER 0400 V/S. PAIN MANAGED OVERNIGHT WITH PRN ANALGESICS. TRANSFER CENTER UPDATED. BED IN LOWEST POSITION AND CALL LIGHT WITHIN REACH.
[2024-06-01 05:46] LABS: Alanine Aminotransfer (ALT/SGP 24 U/L (12-78); Albumin, Blood 2.5 g/dL (3.4-5.0); Albumin/Globulin Ratio 0.6 (0.8-1.8); Alk Phos 126 U/L (50-136); Anion Gap 10 mmol/L (3-11); Aspartate Aminotrans (AST/SGOT 26 U/L (12-37); Bilirubin, Total 0.6 mg/dL (0.1-1.0); Blood Urea Nitrogen 25 mg/dL (8-24); Bun/Creatinine Ratio 33.3 (12.0-20.0); CO2, Blood 23 mmol/L (21-32); Calcium, Blood 8.3 mg/dL (8.5-10.1); Chloride, Blood 112 mmol/L (98-108); Creatinine, Blood 0.75 mg/dL (0.40-1.00); Globulin, Blood 4.3 g/dL (2.2-4.0); Glomerular Filtration Rate 100 (60-); Glucose, Blood 111 mg/dL (70-99); Potassium, Blood 3.3 mmol/L (3.5-5.5); Sodium, Blood 142 mmol/L (136-145); Total Protein, Blood 6.8 g/dL (6.4-8.2); Vancomycin, Trough 32.4 ug/mL (5.0-10.0)
[2024-06-01] MEDS ORDERED: Potassium Chloride 10 Meq Tablet SA PO ONE (06:05)
[2024-06-01] MEDS ORDERED: Morphine Sulfate 4 MG/1 ML Injection IV PRN ×2 (10:10→14:30)
[2024-06-01] MEDS ORDERED: Vancomycin HCL 750 MG in NS 250 ML IV SCH (11:00)
--- NOTE | 2024-06-01 17:59 | NUR ---
SHIFT SUMMARY; ASSUMED CARE AT 0700. A/A/OX4. AMBULATES TO BATHROOM DURING SHIFT WITH SBA. VSS, PAIN MEDS PER EMAR. REPORTS FEELING SHAKY AFTER IV DILAUDID. CHANGED TO IV MORPHINE TODAY, APPEARS TO TOLERATE WELL. LEFT ARM EVALUATED BY DR. TAPIA DURING SHIFT AND DRESSINGS REPLACED. CAP REFILL <3. MOVES LEFT FINGERS SLIGHTLY WITH REPORTED PAIN. LEFT ARM REMAINS SWOLLEN FROM FINGERS TO UPPER BICEPT. L ARM REMAINS WARM AND NON DUSKY. PLAN FOR NPO TONIGHT AFTER MIDNIGHT FOR WASHOUT TOMORROW IN OR. WILL CONTINUE TO MONITOR AND TREAT UNTIL CHANGE OF SHIFT.
[2024-06-02] VITALS (30 sets, daily range): BP systolic 121–176; BP diastolic 70–90
[2024-06-02 05:23] LABS: Hematocrit 24.6 % (33.0-51.0); Hemoglobin 8.2 g/dL (11.5-16.0); Mean Corpuscular HGB 27.9 pg (26.0-34.0); Mean Corpuscular HGB Conc 33.3 g/dL (31.5-36.5); Mean Corpuscular Volume 84 fL (80-100); Mean Platelet Volume 9.4 fL (9.1-12.4); Platelet Count 405 K/mm3 (150-400); RDW Coefficient Variation 15.5 % (11.7-14.2); RDW Standard Deviation 47.3 fL (35.1-46.3); Red Blood Cell Count 2.94 M/mm3 (3.80-5.20); White Blood Cell Count 31.48 K/mm3 (4.00-11.30)
--- NOTE | 2024-06-02 05:48 | NUR ---
SHIFT SUMMARY ASSUMED CARE OF PT AT 1900. PT A&O4, COOPERATIVE IN CARE AND ABLE TO MAKE NEEDS KNOWN. PT'S TEMP SLIGHTLY ELEVATED TO 100.1, PRN TYLENOL GIVEN, TEMP BACK AT BASELINE T/O REST OF SHIFT. PT REPORTS ANALGESIC REGIMEN OF PO DILAUDID AND TYLEOL ALTERNATING WITH TRAMADOL HAS BEEN ABLE TO HELP IN MANAGING THE PAIN TO HER LUE. PT HAS REMAINED ON RA AND BP HAS BEEN STABLE. HR DID RISE TO 137 FOR A BRIEF PERIOD OVERNIGHT. PT HAS BEEN STEADILY AMBULATING TO THE RR OFTEN AND HAS CONCERNS OF EDEMA TO HER BLE AND RUE. IV FLUIDS HAVE NOT BEEN RUNNING D/T HER PO INTAKE. WEIGHT UPDATED IN [facility] [employer] AND I&Os BEING UPDATED. LUE FINGERS PINK AND WARM TO THE TOUCH AND PT STATES SENSATION. BED IN LOWEST POSITION AND CALL LIGHT WITHIN REACH.
[2024-06-02 05:49] LABS: BAND PERCENT MAN 3 % (0-8); BASOPHILS PERCENT MAN 0 % (0-2); EOSINOPHILS PERCENT MAN 0 % (0-6); LYMPHOCYTES ABSOLUTE MAN 0.94 K/mm3 (0.84-5.20); LYMPHOCYTES PERCENT MAN 3 % (21-46); MONOCYTES ABSOLUTE MAN 0.31 K/mm3 (0.16-1.47); MONOCYTES PERCENT MAN 1 % (4-13); NEUTROPHILS ABSOLUTE MAN 30.22 K/mm3 (1.96-9.15); SEG NEUTROPHILS PERCENT MAN 93 % (41-73); TOTAL CELLS COUNTED 100
[2024-06-02 06:16] LABS: Albumin/Globulin Ratio 0.5 (0.8-1.8); Bilirubin, Total 0.9 mg/dL (0.1-1.0); Bun/Creatinine Ratio 27.4 (12.0-20.0); Calcium, Blood 8.2 mg/dL (8.5-10.1); Creatinine, Blood 0.66 mg/dL (0.40-1.00); Globulin, Blood 3.9 g/dL (2.2-4.0); Potassium, Blood 3.1 mmol/L (3.5-5.5); Total Protein, Blood 5.9 g/dL (6.4-8.2)
[2024-06-02 06:17] LABS: C-REACTIVE PROTEIN, EXT RANGE 21.4 mg/dL (0.000-0.300)
[2024-06-02] MEDS ORDERED: Lactated Ringer's 1,000 ML IV SCH (12:55)
[2024-06-02] MEDS ORDERED: Naproxen 500 MG Tab PO PRN (13:20)
[2024-06-02] MEDS ORDERED: Morphine Sulfate 4 MG/1 ML Injection ONE (13:20)
[2024-06-02] MEDS ORDERED: propofoL 20 ML IV ONE (13:38)
[2024-06-02] MEDS ORDERED: Lidocaine HCl 2% 20 ML MDV ONE (13:39)
[2024-06-02] MEDS ORDERED: Ketamine HCl 100 MG / ML 5ML Vial ONE (13:46)
[2024-06-02] MEDS ORDERED: Midazolam HCl 1MG / ML 2ML Vial ONE (13:46)
[2024-06-02] MEDS ORDERED: Ondansetron HCl 2 MG / ML 2ML Vial ONE (13:47)
[2024-06-02] MEDS ORDERED: Dexamethasone Sod Phos 10 MG/ML 1ML VIAL ONE (13:47)
[2024-06-02] MEDS ORDERED: Sodium Hypochlorite 480 ML BTL (0.25%) ONE (13:48)
[2024-06-02] MEDS ORDERED: Ketorolac Tromethamine 30mg Vial ONE (14:04)
--- NOTE | 2024-06-02 14:51 | NUR ---
06/02/24 1451 Faheem Peck SOLUTION USED FOR SOAKING THE KERLIX PACKED INTO THE WOUND.
--- NOTE | 2024-06-02 15:00 | NUR ---
PT SLEEPING. L ARM WRAPPED IN GUY BANDAGE. DECREASED NRB TO 10L. UNABLE TO AROUSE AT THIS TIME. VSS
--- NOTE | 2024-06-02 15:08 | NUR ---
PT SLEEPING. VSS. LMA REMOVED AT 1508.
--- NOTE | 2024-06-02 15:15 | NUR ---
PT AROUSES TO TOUCH. RESTING QUIETLY. NRB REMOVED.
[2024-06-02] MEDS ORDERED: Naloxone HCl 0.4MG / ML 1ML Vial ONE (15:23)
--- NOTE | 2024-06-02 15:30 | NUR ---
PT MAINTAINING OWN AIRWAY. PT UNABLE TO WAKE. 0.4 MG IV NALOXONE GIVEN AT 1508.
[2024-06-02] MEDS ORDERED: Potassium Chloride 20 MEQ TabCR PO ONE (15:40)
--- NOTE | 2024-06-02 15:42 | NUR ---
PT SOUND ASLEEP. IS NOT RESPONDING TO VERBAL OR PAINFUL STIMULI. ANES PROVIDER NOTIFIED.
--- NOTE | 2024-06-02 15:47 | NUR ---
PER ANES PROVIDER, WAIT 20 MINUTES AND TRY TO WAKE PT. IF PT UNAROUSABLE, GIVE .2 MG IV FLUMAZENIL Q5M.
--- NOTE | 2024-06-02 15:50 | NUR ---
PT WILL NOT OPEN EYES, BUT FOLLOWED COMMAND TO FOOD AND BEVERAGE COORDINATOR R HAND.
[2024-06-02] MEDS ORDERED: CeFAZolin Sodium 2,000 MG in NS 100 ML IV SCH (16:00)
[2024-06-02] MEDS ORDERED: Piperacillin/Tazobactam Sod 4.5 GM in NS 100 ML IV SCH (16:00)
--- NOTE | 2024-06-02 16:47 | NUR ---
TRANSFER TO ICU PT ARRIVED TO ICU AT 1610 S/P PACU RECOVERY. PT IS DROWSEY AND LETHARGIC, BUT MOANS TO SOME QUESTIONS AND SHAKES HEAD YES/NO. PT IS ABLE TO SQUEEZE RIGHT HAND UPON COMMAND. PUPILS 2MM PERRL. FINGERS TO LEFT HAND DUSKY, WARM, AND WITH GOOD SPO2 PLETH. LEFT HAND UP TO UPPER ARM WITH NEW GUY WRAP IN PLACE S/P SURGERY. UNABLE TO VISUALIZE WOUNDS/COLOR TO HAND AND ARM. NO SIGNS OF REDDNESS OR MOTTLING NOTED TO LEFT UPPER ARM/SHOULDER. PIV AND PG IN PLACE TO RIGHT ARM, SALINE LOCKED. ABX STARTED PER ORDERS AT THIS TIME. VITAL SIGNS STABLE. PT ON ROOM AIR. PT PALE THROUGHOUT. PT SPOUSE AND MOTHER AT BEDSIDE AT THIS TIME. UPDATED TO PT CONDITION AND PLAN TO TRANSFER TO [facility] IN [place]. WILL CONTINUE TO MONITOR.
[2024-06-02] MEDS ORDERED: Potassium Chl 20MEQ/Water100ML 100 ML IV SCH (16:55)
--- NOTE | 2024-06-02 16:56 | NUR ---
TRANSFER OF CARE A&OX4, OBEYS COMMANDS, ABLE TO MAKE NEEDS KNOWN, CALLS APPROPATELY. I PERSON SBA TO BRP TO HELP WITH CORD MANAGEMENT, PT HAS LIMITED MOBILITY TO LEFT ARM, DUE TO WOUND DRESSING, PT ENCOUNGAGED TO MOVE FINGERS ON THE LEFT HAND. CONTINUOUS SPO2 MONITORING, SPO2 GREATER THAN 90% ON RA, NO SIGN OF RESPIRATORY DISTRESS NOTED, LUNGS SOUND CLEAR T/O. CONTINUOUS TELE MONITORING, SNR 90-100 S, DENIES CHEST P/P, BP STABLE WITH MAP GREATER THAN 65, CAP REFILL WNL, STRONG PULSES T/O / CHECO LEFT RADIAL PULSE DUE TO WOUND DRESSING/ LEFT FINGERS WARM WITH CAP REFILL WNL, EDEMA +2 TO BLE/BUE. INCISIONS UNDER WOUND DRESSING, SMALL SCAB TO LEFT EYEBROW WITHOUT SIGNS OF INFECTION, LEFT INDEX FINGER HAS SMALL SCAB AREA SLIGHTLY RED BUT NOT OTHER SIGNS OF INFECTION, NO INCREASED RENDESS BELOW OR ABOVE THE DRESSING SITES. PT STATES PAIN IS MUCH BETTER THAN YESTERDAY 06/01, ITS MANAGEABLE WITH CURRENT ORDERS FOR PAIN MANAGEMENT. HELD AM LOVENOX FOR PROCEDURE THIS AFTERNOON, AWARE. PT TAKEN BACK TO PROCEDURE THIS AFTERNOON, BY WHEEL CHAIR. DR. CARLTON ROUNDED AFTER THE PROCEDURE WITH UPDATED TO PLAN OF CARE TRANSFERRED TO ICU , REPORT GIVEN TO MILAGRO Smith RN AND JAYY Cervantes RN AT BEDSIDE FROM OR.
--- NOTE | 2024-06-02 17:19 | NUR ---
"Spiritual Care | Family Support | Nurse Coordinator Request Pt. is resting. Spouse is at bedside when I went to meet with Pts. other family in the ICU Waiting Room. Facilitated a life review. Pts. mother and children are present. Listen with empathy and a calming presence. Mother displays evidence of being encouraged with the hope of an available room in another hospital. Considered matters of yaniv and belief. Mother verbalized gratitude for the spiritual care support. Will remain available to the Pt. and family."
--- NOTE | 2024-06-02 18:00 | NUR ---
TRANSFER TO [place] PT WITH BED ASSIGNMENT AND ACCEPTING DR AT [facility]. PT FAMILY UPDATED BY THIS RN AND DR OVIEDO AT BEDSIDE. PT REMAINS WITH STABLE VS AT THIS TIME, ON ROOM AIR. PT ABLE TO ANSWER SIMPLE QUESTIONS. DRESSING TO LEFT ARM REMAINS C/D/I. PT TO BE TRANSFERED [facility].
--- NOTE | 2024-06-02 19:48 | NUR ---
ASSUMPTION OF CARE/ASSESSMENT/TRANSFER: ASSUMED CARE OF PT AT 1900; REPORT RECIEVED FROM JAYY MALCOLM. PT A&O X 4, GROGGY BUT FOLLOWING DIRECTIONS. PT S/P DAY 3 FROM I&D ON 05/30; LLE WRAPPED IN GUY BANDAGE WITH DRAIN IN PLACE, DRESSING C/D/I. L. FINGERS REMAIN WARM, SENSATION INTACT AND CAP REFIL WNL. PT ABLE TO MOVE ALL EXTREMITIES. PT REPORTS PAIN MANAGABLE AT THIS TIME. PT REMAINS ON RA, LUNGS CLEAR T/O AND DENIES SOB. SR ON MONITOR WITH HR 80-90, SBP 110'S AND DENIES CHEST PAIN/PRESSURE. AFEBRILE. PT'S FAMILY AT BEDSIDE AND UPDATED ON BED ASSIGNMENT AND TRANSFER INITIATED TO [facility]. [facility] TRANSPORT PT. PT LEFT WITH [facility] @ 2011.
== END 2024-06-02 20:15 | disposition short-term general hospital (02) | DRG 853 ==
LOC: ER 11:34 → PCU 15:10 → MEDS 15:10 → PCU 05-30 15:14 → ICUE 06-02 16:22
PROVIDERS: Internal Medicine; Orthopaedic Surgery; Physician Assistant; ADMIT Internal Medicine
PROC: 3E03329 Introduction of Other Anti-infective into Peripheral Vein, Percutaneous Approach (ICD-10-PCS; principal; 2024-05-26)
PROC: 30233J1 Transfusion of Nonautologous Serum Albumin into Peripheral Vein, Percutaneous Approach (ICD-10-PCS; 2024-05-29)
PROC: 0JDK0ZZ Extraction of Left Hand Subcutaneous Tissue and Fascia, Open Approach (ICD-10-PCS; 2024-05-30)
PROC: 0J9K0ZZ Drainage of Left Hand Subcutaneous Tissue and Fascia, Open Approach (ICD-10-PCS; 2024-05-30)
DX: A41.9 Sepsis, unspecified organism (principal); M72.6 Necrotizing fasciitis; L03.114 Cellulitis of left upper limb; E87.1 Hypo-osmolality and hyponatremia; K51.90 Ulcerative colitis, unspecified, without complications; A04.72 Enterocolitis due to Clostridium difficile, not specified as recurrent; R65.20 Severe sepsis without septic shock; E88.09 Other disorders of plasma-protein metabolism, not elsewhere classified; M79.642 Pain in left hand; M79.89 Other specified soft tissue disorders; E87.6 Hypokalemia; S61.211A Laceration without foreign body of left index finger without damage to nail, initial encounter; W26.0XXA Contact with knife, initial encounter; Z88.0 Allergy status to penicillin; Z88.2 Allergy status to sulfonamides; Z88.8 Allergy status to other drugs, medicaments and biological substances; Z88.5 Allergy status to narcotic agent; Z79.899 Other long term (current) drug therapy; Z98.890 Other specified postprocedural states
CPT/HCPCS: 36415; 36416; 73130; 73201; 76882; 80048; 80053; 80202; 83605; 83735; 84145; 84550; 84703; 85025; 85027; 85651; 86140; 86141; 87040; 87070; 87075; 87147; 87205; 88305; 93005; 93010; 94760; 94762; 96361; 96365-59; 96375-59; 96376-59; 97110; 97165; 99284-25; A9270; C1751; J0692; J1100; J1171; J1650; J1885; J1940; J2250; J2270; J2310; J2371; J2405; J2543; J2704; J2765; J3370; J3480; J7030; J7040; J7050; J7120; P9047; Q9967

== ENCOUNTER 2024-06-18 23:44 | Emergency (ER) | payer BC ==
[~2024-06-18] VITALS: Ht 162.6 cm; Wt 54.4 kg
[~2024-06-18 23:44] MED LIST changes: +MESALAMINE PR
[2024-06-19 00:22] VITALS: BP 136/102
== END 2024-06-19 03:05 | disposition home or self-care (01) ==
LOC: ER 23:44
DX: T85.638A Leakage of other specified internal prosthetic devices, implants and grafts, initial encounter (principal); Z88.2 Allergy status to sulfonamides; Z88.5 Allergy status to narcotic agent; Z88.8 Allergy status to other drugs, medicaments and biological substances; Z79.899 Other long term (current) drug therapy
CPT/HCPCS: 99282

== ENCOUNTER 2024-06-19 11:47 | Emergency (ER) | payer BC ==
[~2024-06-19] VITALS: Ht 167.6 cm; Wt 61.2 kg
[2024-06-19 12:10] VITALS: BP 146/95
== END 2024-06-19 14:00 | disposition home or self-care (01) ==
LOC: ER 11:47
DX: Z48.01 Encounter for change or removal of surgical wound dressing (principal); Z87.39 Personal history of other diseases of the musculoskeletal system and connective tissue; Z88.2 Allergy status to sulfonamides; Z88.5 Allergy status to narcotic agent; Z79.899 Other long term (current) drug therapy
CPT/HCPCS: 99283

== ENCOUNTER 2024-06-19 23:02 | Emergency (ER) | payer BC ==
[~2024-06-19] VITALS: Ht 162.6 cm; Wt 54.4 kg
[2024-06-19 23:29] VITALS: BP 113/78
== END 2024-06-20 00:23 | disposition home or self-care (01) ==
LOC: ER 23:02
DX: Z48.00 Encounter for change or removal of nonsurgical wound dressing (principal); Z88.2 Allergy status to sulfonamides; Z88.5 Allergy status to narcotic agent; Z79.899 Other long term (current) drug therapy
CPT/HCPCS: 99283

== ENCOUNTER 2024-06-20 11:15 | Emergency (ER) | payer BC ==
[~2024-06-20] VITALS: Ht 162.6 cm; Wt 54.4 kg
[2024-06-20 11:38] VITALS: BP 122/97
== END 2024-06-20 13:06 | disposition home or self-care (01) ==
LOC: ER 11:15
DX: Z48.01 Encounter for change or removal of surgical wound dressing (principal); Z87.39 Personal history of other diseases of the musculoskeletal system and connective tissue; Z59.89 Other problems related to housing and economic circumstances
CPT/HCPCS: 99283

== ENCOUNTER 2024-06-20 22:47 | Emergency (ER) | payer BC ==
[~2024-06-20] VITALS: Ht 162.6 cm; Wt 54.4 kg
[2024-06-20 23:07] VITALS: BP 125/94
== END 2024-06-20 23:23 | disposition home or self-care (01) ==
LOC: ER 22:47
DX: Z48.01 Encounter for change or removal of surgical wound dressing (principal); Z88.2 Allergy status to sulfonamides; Z88.5 Allergy status to narcotic agent; Z88.8 Allergy status to other drugs, medicaments and biological substances; Z79.899 Other long term (current) drug therapy
CPT/HCPCS: 99283

== ENCOUNTER 2024-06-21 03:46 | Day surgery (SDC) | payer BC | END 2024-06-21 23:00 | disposition home or self-care (01) | LOC: WOUND 03:46 | DX: T81.31XD Disruption of external operation (surgical) wound, not elsewhere classified, subsequent encounter (principal); K51.90 Ulcerative colitis, unspecified, without complications; Z88.2 Allergy status to sulfonamides; Z88.5 Allergy status to narcotic agent | CPT/HCPCS: G0463 ==

== ENCOUNTER 2024-06-30 05:43 | Day surgery (SDC) | payer BC | END 2024-06-30 22:51 | disposition home or self-care (01) | LOC: WOUND 05:43 | DX: T81.31XS Disruption of external operation (surgical) wound, not elsewhere classified, sequela (principal); Y83.8 Other surgical procedures as the cause of abnormal reaction of the patient, or of later complication, without mention of misadventure at the time of the procedure | CPT/HCPCS: G0463 ==

== ENCOUNTER 2024-07-07 05:24 | Day surgery (SDC) | payer BC | END 2024-07-07 23:00 | disposition home or self-care (01) | LOC: WOUND 05:24 | DX: T81.31XD Disruption of external operation (surgical) wound, not elsewhere classified, subsequent encounter (principal) | CPT/HCPCS: G0463 ==

== ENCOUNTER 2024-07-14 03:10 | Day surgery (SDC) | payer BC ==
[2024-07-14] MEDS ORDERED: Silver Nitr/Potassium Nitrate 1 EA APPL ONE (10:50)
== END 2024-07-14 22:00 | disposition home or self-care (01) ==
LOC: WOUND 03:10
DX: T81.31XA Disruption of external operation (surgical) wound, not elsewhere classified, initial encounter (principal); T81.31XD Disruption of external operation (surgical) wound, not elsewhere classified, subsequent encounter
CPT/HCPCS: A9270

== ENCOUNTER 2024-07-21 06:04 | Day surgery (SDC) | payer BC | END 2024-07-21 23:00 | disposition home or self-care (01) | LOC: WOUND 06:04 | DX: T81.31XD Disruption of external operation (surgical) wound, not elsewhere classified, subsequent encounter (principal); S41.102D Unspecified open wound of left upper arm, subsequent encounter; S51.802D Unspecified open wound of left forearm, subsequent encounter; S61.402D Unspecified open wound of left hand, subsequent encounter; X58.XXXD Exposure to other specified factors, subsequent encounter; Y83.8 Other surgical procedures as the cause of abnormal reaction of the patient, or of later complication, without mention of misadventure at the time of the procedure | CPT/HCPCS: G0463 ==

== ENCOUNTER 2024-07-28 01:55 | Day surgery (SDC) | payer BC | END 2024-07-28 23:00 | disposition home or self-care (01) | LOC: WOUND 01:55 | DX: T81.31XD Disruption of external operation (surgical) wound, not elsewhere classified, subsequent encounter (principal) | CPT/HCPCS: G0463 ==